=== PATIENT | male | born 1950 | race Caucasian/White ===

== ENCOUNTER 2018-05-07 15:33 | Outpatient (CLI) | payer MEDICARE ==
[~2018-05-07] VITALS: Ht 177.8 cm; Wt 97.5 kg
[~2018-05-07 15:33] MED LIST: FLC100T1 PO; PRD20T PO
== END 2018-05-07 15:34 | disposition home or self-care (01) ==
LOC: PREOP 15:33
PROVIDERS: ATTEND Surgery
DX: Z01.818 Encounter for other preprocedural examination (principal)

== ENCOUNTER 2018-05-13 07:47 | Day surgery (SDC) | payer MEDICARE ==
[~2018-05-13] VITALS: Ht 177.8 cm; Wt 97.5 kg
[2018-05-13] MEDS ORDERED: NS IV 500 ML 500 ML IV PRN (07:58)
[2018-05-13] MEDS ORDERED: NS IV 500 ML 500 ML ONE (07:59)
[2018-05-13] MEDS ORDERED: MIDAZOLAM 2 MG/2 ML (VERSED) VIAL IVP ONE (08:00)
[2018-05-13] MEDS ORDERED: fentaNYL INJECTION 100 MCG/2 ML AMP IVP ONE (08:00)
[2018-05-13 08:08] VITALS: BP 125/76
--- NOTE | 2018-05-13 08:22 | History & Physicial ---
History of Present Illness History of Present Illness Reason for visit/HPI to undergo screening colonoscopy. Reports a positive family history in his father and paternal uncle Date of Admission 05/13/18 Date Seen by a Provider: May 13, 2018 Time Seen by a Provider: 08:21 I consulted on this patient on 05/13/18 08:21 Attending Physician Jorge Jay MD Admitting Physician Iban Victor DO Consult Allergies and Home Medications Allergies Coded Allergies: No Known Drug Allergies (Unverified , 06/28/13) Home Medications No Active Prescriptions or Reported Meds Patient Home Medication List Home Medication List Reviewed: Yes Past Sizalnn-Liivkd-Udxmsg Hx Patient Social History Marrital Status: single Employed/Student: retired Alcohol Use: Denies Use Recreational Drug Use: No Smoking Status: Never a Smoker Recent Foreign Travel: No Contact w/other who traveled: No Recent Hopitalizations: No Recent Infectious Disease Expo: No Immunizations Up To Date Tetanus Booster (TDap): Less than 5yrs Date of Pneumonia Vaccine: Apr 30, 2018 Date of Influenza Vaccine: Apr 08, 2018 Seasonal Allergies Seasonal Allergies: No Surgeries Yes Adenoidectomy, Tonsillectomy Respiratory No Cardiovascular No Neurological No Genitourinary No Gastrointestinal No Endocrine History of Endocrine Disorders: No HEENT History of HEENT Disorders: No Psychosocial Behavioral Health Disorders: Schizophrenia Review of Systems Constitutional: no symptoms reported EENTM: no symptoms reported Respiratory: no symptoms reported Cardiovascular: no symptoms reported Gastrointestinal: no symptoms reported Genitourinary: no symptoms reported Musculoskeletal: no symptoms reported Skin: no symptoms reported Psychiatric/Neurological: No Symptoms Reported Physical Exam Vital Signs Vital Signs - First Documented 05/13/18 08:08 Temp 97.3 Pulse 75 Resp 16 B/P (MAP) 125/76 (92) Pulse Ox 97 O2 Delivery Room Air Capillary Refill : Height, Weight, BMI Height: 5'10.00" Weight: 215lbs. 0.0oz. 97.032646cg; 30.9 BMI Method:Stated General Appearance: No Apparent Distress Respiratory: Lungs Clear Cardiovascular: Regular Rate, Rhythm Gastrointestinal: Non Tender, Soft Rectal: Deferred Neurologic/Psychiatric: Oriented x3 Skin: Warm/Dry Assessment/Plan Assessment and Plan gentleman to undergo screening colonoscopy. Positive family history of colon cancer. Admission Diagnosis Admission Status: Other (Outpt Proc) JORGE JAY MD May 13, 2018 08:22
--- NOTE | 2018-05-13 08:23 | Conscious Sedation/ASA ---
Conscious Sedation Pre-Proced Time 08:23 ASA Score 2 For ASA 3 and 4: Consider anesthesia and medical clearance. Also, for patients with a history of failed moderate sedation consider anesthesia. Airway Lungs Heart ASA score ASA 1: a normal healthy patient ASA 2: a patient with a mild systemic disease (mid diabetes, controlled hypertension, obesity ASA 3: a patient with a severe systemic disease that limits activity (angina , COPD, prior Myocardial infarction) ASA 4: a patient with an incapacitating disease that is a constant threat to life (CHF, renal failure) ASA 5: a moribund patient not expected to survive 24 hrs. (ruptured aneurysm) ASA 6: a declared brain patient whose organs are being harvested. For emergent operations, add the letter E after the classification Mallampati Classification Grade 1 Sedation Plan Discussed options with patient/fam The patient is an appropriate candidate to undergo the planned procedure, sedation, and anesthesia. The patient immediately re-assessed prior to indication. JORGE JAY MD May 13, 2018 08:23
[2018-05-13] MEDS ORDERED: fentaNYL INJECTION 100 MCG/2 ML AMP ONE (08:45)
[2018-05-13] MEDS ORDERED: MIDAZOLAM 2 MG/2 ML (VERSED) VIAL ONE ×3 (08:45)
--- NOTE | 2018-05-13 09:11 | Endo Procedure Record ---
Endo Procedure Report Date of Procedure Last Colonoscopy: Yes May 13, 2018 Surgeon (s) JORGE JAY MD Post Procedure/Op Diagnosis 1.sigmoid diverticulosis 2. 2 mm sessile polyp at the mid rectum Procedure Performed colonoscopy to cecum Snare polypectomy Description of Procedure Anesthesia Type: Conscious Sedation Specimen(s) collected/removed rectal polyp Description of the Procedure indication for the procedure: This gentleman, with a family history of colon cancer, came in for screening colonoscopy. Informed consent was obtained after reviewing the procedure in detail. Description of procedure: He was placed in left lateral decubitus position and his vital signs were monitored. Conscious sedation was achieved using Versed and fentanyl. Digital rectal examination was unremarkable. The colonoscope was then introduced into the rectum and advanced all the way up to the cecum. It was then withdrawn slowly and the mucosa examined in a systematic fashion. Findings: 1. 2 mm sessile polyp at the mid rectum, that was snared and retrieved 2. Very few sigmoid diverticulae He tolerated the procedure well and was taken to the nursing area in a stable condition. Impression: Screening colonoscopy. Positive family history. Sessile rectal polyp excised. Recommend repeating in 3 years. Copy Copies To 1: KAITLYNN CORDERO XAVIER M MD May 13, 2018 09:11
--- NOTE | 2018-05-13 09:13 | Discharge Inst-Simple/Standard ---
Discharge Inst-Standard Discharge Medications New, Converted or Re-Newed RX: Other Patient Instructions/Follow Up Plan of Care/Instructions/FU: repeat colonoscopy in 3 years Activity as Tolerated: Yes Discharge Diet: No Restrictions JORGE JAY MD May 13, 2018 09:13
[2018-05-13 09:30] VITALS: BP 118/67
[2018-05-13 10:04] VITALS: BP 124/75
[2018-05-13 10:06] VITALS: BP 124/75
== END 2018-05-13 10:05 | disposition home or self-care (01) ==
LOC: ENDO 07:47
PROVIDERS: ATTEND Surgery
DX: Z12.11 Encounter for screening for malignant neoplasm of colon (principal); K62.1 Rectal polyp; K57.30 Diverticulosis of large intestine without perforation or abscess without bleeding; F20.9 Schizophrenia, unspecified; Z80.0 Family history of malignant neoplasm of digestive organs
CPT/HCPCS: 88305

== ENCOUNTER → 2018-07-16 | Outpatient (CLI) | payer MEDICARE | LOC: CARD 15:19 | PROVIDERS: ATTEND Family Medicine | DX: I49.9 Cardiac arrhythmia, unspecified (principal) | CPT/HCPCS: 93005 ==

== ENCOUNTER 2022-11-08 06:06 | Outpatient (CLI) | payer MEDICARE ==
[~2022-11-08] VITALS: Ht 177.8 cm; Wt 107.5 kg
== END 2022-11-09 12:11 | disposition home or self-care (01) ==
LOC: PREOP 06:06
PROVIDERS: ATTEND Surgery
DX: Z01.818 Encounter for other preprocedural examination (principal)

== ENCOUNTER 2022-11-20 07:44 | Day surgery (SDC) | payer MEDICARE ==
[~2022-11-20] VITALS: Ht 177.8 cm; Wt 107.5 kg
[2022-11-20 08:05] VITALS: BP 129/81
[2022-11-20] MEDS ORDERED: LACTATED RINGERS 1,000 ML IV STA (08:14)
[2022-11-20] MEDS ORDERED: PROPOFOL INJECTION 50 ML IV ONE (08:24)
--- NOTE | 2022-11-20 08:37 | Progress Note-Pre Operative ---
Pre-Operative Progress Note Date of Available H&P: Nov 02, 2022 Date H&P Reviewed: November 20, 2022 Time H&P Reviewed: 08:34 History & Physical: H&P Reviewed, Patient Examed, No changes noted Pre-Operative Diagnosis: Hx of Polyps ARELI MARTINEZ DO November 20, 2022 08:37
[2022-11-20 09:45] VITALS: BP 106/64
--- NOTE | 2022-11-20 09:45 | Progress Note-Post Operative ---
Post-Operative Progess Note Surgeon (s)/Bus Person Dishwasher (s) Surgeon ARELI MARTINEZ DO Bus Person Dishwasher: ZIA Omal[employer] student Pre-Operative Diagnosis Hx of Polyps Post-Operative Diagnosis Polyps diverticula int hemorrhoids Procedure & Operative Findings Date of Procedure 11/20/22 Procedure Performed/Findings Colonoscopy with snare polypectomy PROCEDURE NOTE: After informed consent was obtained, the patient was brought to the endoscopy suite, placed in bed in left lateral decubitus position. He was administered IV sedation by the [facility] who then monitored his vitals the entire time, heart rate, blood pressure and pulse ox and the scope was inserted, pushed all the way to about 150 cm and pushed into the cecum. Just outside the cecum found a polyp and elected to remove it with the snare. I took a picture of appendiceal orifice and noted the ileocecal valve. I also found 3 more polyps in the cecum that I also removed with the snare and heat. Then slowly withdrew the scope insufflating to look circumferentially at the bell starting in the cecum, up the ascending colon to the hepatic flexure, then down the transverse colon. Found another small polyp here and removed it with the snare. I also took a picture of a diverticula. Continued to the splenic flexure, into the descending colon, down into the sigmoid and then into the rectal vault and retroflexed the scope. I took a picture of the internal hemorrhoids and noted another polyp. I removed this one with the snare as well. The patient tolerated the procedure. He was recovered in endoscopy suite. Recommended for repeat colonoscopy in 3 years. Anesthesia Type IV sedation by Anesthesia Estimated Blood Loss Estimated blood loss (mL): scant Specimens/Packing Specimens Removed Asc colon polyp Cecal polyp x 3 Transverse colon polyp rectal polyp ARELI MARTINEZ DO November 20, 2022 09:45
--- NOTE | 2022-11-20 09:46 | Endoscopy Discharge Instruct ---
Endo Procedure/Findings Findings 1.: Polyp 2.: Diverticulosis 3.: Internal Hemorrhoids Discharge Instructions - Activity: You might feel a little sleepy until tomorrow. This is due to the medicine you received to relax you. Until tomorrow, you should: NOT drive a car, operate machinery or power tools. NOT drink any alcoholic beverages. NOT make any important decisions or sign importortant papers. Do not return to work until tomorrow, unless otherwise instructed. Resume previous activities tomorrow. Diet: Start by taking liquids. If you tolerate liquids, advance to solid food. 1.: Colonscopy in 3 years Notify Physician - If you experience excessive bleeding, unusual abdominal pain, fever, or chest pain, contact your doctor immediately. Follow-Up: Other Follow up in my office in one week ARELI MARTINEZ DO November 20, 2022 09:46
[2022-11-20 09:50] VITALS: BP 108/65
[2022-11-20 10:22] VITALS: BP 108/65
--- NOTE | 2022-11-20 10:35 | Anesthesia-General Post-Op ---
MAC Patient Condition Mental Status/LOC: Same as Preop Cardiovascular: Satisfactory Nausea/Vomiting: Absent Respiratory: Satisfactory Pain: Controlled Complications: Absent Post Op Complications Complications None Follow Up Care/Instructions Patient Instructions None needed. Anesthesiology Discharge Order Discharge Order Patient is doing well, no complaints, stable vital signs, no apparent adverse anesthesia problems. No complications reported per nursing. LIGIA GARCIA DO November 20, 2022 10:35
== END 2022-11-20 10:15 | disposition home or self-care (01) ==
LOC: ENDO 07:44
PROVIDERS: ATTEND Surgery
DX: Z12.11 Encounter for screening for malignant neoplasm of colon (principal); D12.2 Benign neoplasm of ascending colon; D12.0 Benign neoplasm of cecum; K62.1 Rectal polyp; K63.5 Polyp of colon; K57.30 Diverticulosis of large intestine without perforation or abscess without bleeding; K64.8 Other hemorrhoids; Z80.0 Family history of malignant neoplasm of digestive organs; E66.9 Obesity, unspecified; Z68.34 Body mass index [BMI] 34.0-34.9, adult